=== PATIENT | female | born 1985 | race American Indian/Alaskan Native ===

== ENCOUNTER 2018-07-26 13:17 | Emergency (ER) | payer MEDICAID ==
[2018-07-26 13:27] VITALS: BP 122/75
--- NOTE | 2018-07-26 13:28 | Emergency Department Report ---
Blank Doc - Documentation Documentation: 33 yo female presents to ED cc of n/left sided pelvic pain 7/10 intensity and feels like she is states abn cycle this month. states hx of ovarian cyst ua,upt [facility] eval
[2018-07-26] MEDS ORDERED: ZOFRAN ODT PO ONE (13:51)
[2018-07-26 14:13] LABS: HCG Qualitative,Urine Negative (Negative)
[2018-07-26 14:14] LABS: Bacteria,Urine 4+ /HPF (Negative); Bilirubin,Urine NEG (Negative); Blood,Urine LG (Negative); Color,Urine Yellow (Yellow); Mucus,Urine FEW /HPF; Protein,Urine <15 mg/dL mg/dL (Negative); Urobilinogen,Urine < 2.0 mg/dL (<2.0)
--- NOTE | 2018-07-26 16:05 | Emergency Department Report ---
ED Abdominal Pain HPI - General Chief Complaint: Abdominal Pain Stated Complaint: SYMPTOMS/CRAMPING LEFT SIDE Time Seen by Provider: 07/26/18 13:23 Source: patient Mode of arrival: Ambulatory Limitations: No Limitations - History of Present Illness Initial Comments: Patient is a 33-year-old female who is presenting with left-sided abdominal di scomfort. Patient's had some nausea and one episode of vomiting. She states the cramping sensation and can be worse at night. And present for the past 3-4 days. Patient states it's left upper and lower quadrants. She denies any diarrhea fevers chills, cold or congestion. Patient believes that she may be however she is currently on her menses. Patient believes she may be miscarrying. Severity scale (0 -10): 7 - Related Data Previous Rx's Medication Instructions Recorded Last Taken Type Dicyclomine [Bentyl] 10 mg PO QID #15 capsule 07/26/18 Unknown Rx Docusate Sodium [Colace] 100 mg PO BID #30 capsule 07/26/18 Unknown Rx Simethicone [Gas-X Ultra Strength] 180 mg PO DAILY #7 capsule 07/26/18 Unknown Rx Allergies Allergy/AdvReac Type Severity Reaction Status Date / Time No Known Allergies Allergy Unverified 07/26/18 13:24 ED Review of Systems ROS: Stated complaint: SYMPTOMS/CRAMPING LEFT SIDE Other details as noted in HPI Comment: All other systems reviewed and negative ED Past Medical Hx - Past Medical History Previous Medical History?: Yes Additional medical history: OVARIAN CYST - Surgical History Past Surgical History?: No Additional Surgical History: C SECTION - Social History Smoking Status: Never Smoker Substance Use Type: None - Medications Home Medications: Home Medications Medication Instructions Recorded Confirmed Last Taken Type Dicyclomine [Bentyl] 10 mg PO QID #15 capsule 07/26/18 Unknown Rx Docusate Sodium [Colace] 100 mg PO BID #30 capsule 07/26/18 Unknown Rx Simethicone [Gas-X Ultra Strength] 180 mg PO DAILY #7 capsule 07/26/18 Unknown Rx ED Physical Exam - General Limitations: No Limitations General appearance: alert, in no apparent distress - Head Head exam: Present: atraumatic, normocephalic - Eye Eye exam: Present: normal appearance - ENT ENT exam: Present: mucous membranes moist - Neck Neck exam: Present: normal inspection - Respiratory Respiratory exam: Present: normal lung sounds bilaterally. Absent: respiratory distress, wheezes, rales, rhonchi - Cardiovascular Cardiovascular Exam: Present: regular rate, normal rhythm. Absent: systolic murmur, diastolic murmur, rubs, gallop - GI/Abdominal GI/Abdominal exam: Present: soft, tenderness (left side of the abdomen), normal bowel sounds. Absent: distended, guarding, rebound, rigid, diminished bowel sounds, hyperactive bowel sounds - Extremities Exam Extremities exam: Present: normal inspection - Back Exam Back exam: Present: normal inspection - Neurological Exam Neurological exam: Present: alert, oriented X3 - Psychiatric Psychiatric exam: Present: normal affect, normal mood - Skin Skin exam: Present: warm, dry, intact, normal color. Absent: rash ED Course Vital Signs 07/26/18 13:24 Temperature 97.9 F Pulse Rate 86 Respiratory 16 Rate Blood Pressure 122/75 O2 Sat by Pulse 99 Oximetry ED Medical Decision Making - Lab Data Lab Results 07/26/18 Range/Units 14:00 Urine Color Yellow (Yellow) Urine Turbidity Clear (Clear) Urine pH 6.0 (5.0-7.0) Ur Specific [place] 1.005 (1.003-1.030) Urine Protein <15 mg/dl (Negative) mg/dL Urine Glucose (UA) Neg (Negative) mg/dL Urine Ketones Neg (Negative) mg/dL Urine Blood Lg (Negative) Urine Nitrite Neg (Negative) Ur Reducing Substances Not Reportable Urine Bilirubin Neg (Negative) Urine Ictotest Not Reportable Urine Urobilinogen < 2.0 (<2.0) mg/dL Ur Leukocyte Esterase Tr (Negative) Urine WBC (Auto) 4.0 (0.0-6.0) /HPF Urine RBC (Auto) 57.0 (0.0-6.0) /HPF U Epithel Cells (Auto) 1.0 (0-13.0) /HPF Urine Bacteria (Auto) 4+ (Negative) /HPF Urine Mucus Few /HPF Urine HCG, Qual Negative (Negative) - Radiology Data Patient has a mild productive bowel gas pattern. She does have some prominent loops of bowel in the left upper and lower quadrant consistent with some Retained gas Critical care attestation.: If time is entered above; I have spent that time in minutes in the direct care of this critically ill patient, excluding procedure time. ED Disposition Clinical Impression: Gas pain Disposition: DC-01 TO HOME OR SELFCARE Is pt being admited?: No Does the pt Need Aspirin: No Condition: Stable Instructions: Abdominal Pain (ED) Referrals: FRANKI EASLEY MD [Primary Care Provider] - 3-5 Days Time of Disposition: 16:05
--- NOTE | 2018-07-26 16:30 | XRay Report ---
PROCEDURE: XR ABD SERIES W CXR 1V TECHNIQUE: Frontal view of the chest and frontal views of the abdomen and pelvis in the supine and u pright positions HISTORY: LUQ pain COMPARISONS: None FINDINGS: X-RAY CHEST: There is no evidence of infiltrate, pneumothorax or pleural fluid collection. The cardiomediastinal silhouette is normal in appearance. The bony structures are unremarkable. X-RAY ABDOMEN AND PELVIS: The bowel gas pattern is nonobstructive with air in nondistended loops of small bowel and colon. Stool is demonstrated in portions of the colon and rectum. There is no evidence of pneumoperitoneum nor organomegaly. The bony structures are notable for levocurvature of the lumbar spine. IMPRESSION: 1. No plain film evidence of an acute intrathoracic nor intra-abdominal process. If there is a clinical concern of an acute intra-abdominal process, CT may be helpful for further meliton luation. This document is electronically signed by Jodi Martinez MD., July 26 2018 04:27:50 PM ET
== END 2018-07-26 16:10 | disposition home or self-care (01) ==
LOC: ED 13:17
DX: R14.1 Gas pain (principal)
CPT/HCPCS: 74022; 81001; 81025; 99284; Q0162

== ENCOUNTER 2018-08-30 19:34 | Emergency (ER) | payer MEDICAID ==
[2018-08-30 20:43] VITALS: BP 134/83
== END 2018-08-30 21:00 | disposition left against medical advice (07) ==
LOC: ED 19:34
DX: N89.8 Other specified noninflammatory disorders of vagina (principal); Z53.21 Procedure and treatment not carried out due to patient leaving prior to being seen by health care provider

== ENCOUNTER 2018-11-26 15:21 | Emergency (ER) | payer MEDICAID ==
--- NOTE | 2018-11-26 15:45 | Event Note ---
ED Screening Note ED Screening Note: FOUL ODOR URINE DISCHARGE NOT CONCERNED FOR STI NO BLEEDING LMP 7/6 PMH NONE RX NONE ETOH OCC NO TRAVEL This initial assessment/diagnostic orders/clinical plan/treatment(s) is/are subject to change based on patients health status, clinical progression and re- assessment by fellow clinical providers in the ED. Further treatment and workup at subsequent clinical providers discretion. Patient/guardian urged not to elope from the ED as their condition may be serious if not clinically assessed and man aged. Initial orders include: UA
[2018-11-26 16:03] LABS: HCG Qualitative,Urine Negative (Negative)
[2018-11-26 16:10] LABS: Bacteria,Urine 1+ /HPF (Negative); Bilirubin,Urine NEG (Negative); Blood,Urine NEG (Negative); Color,Urine Yellow (Yellow); Mucus,Urine FEW /HPF; Protein,Urine <15 mg/dL mg/dL (Negative); Urobilinogen,Urine < 2.0 mg/dL (<2.0)
--- NOTE | 2018-11-26 16:17 | Emergency Department Report ---
ED Dysuria HPI - HPI Chief Complaint: Abdominal Pain Stated Complaint: ABD CRAMPS/ODOR IN URINE Time Seen by Provider: 11/26/18 15:45 Duration: 3 Days Location of Discomfort: Suprapubic Severity: Mild Symptoms: Dysuria: Yes, Frequency: No, Suprapubic Pain: No, Flank Pain: No, Fever: No, Hematuria: No, Abdominal Pain: No, Previous UTI's: Yes Other History: HERE W HER USUAL UTI S/S. NO FEVER. NO CVA TENDERNESS. NO CONCERN STI. NO CONCERN PREG. FOUL SMELLING URINE. ED Review of Systems ROS: Stated complaint: ABD CRAMPS/ODOR IN URINE Other details as noted in HPI Comment: All other systems reviewed and negative ED Past Medical Hx - Past Medical History Previous Medical History?: No Additional medical history: OVARIAN CYST - Surgical History Past Surgical History?: Yes Additional Surgical History: C SECTION - Family History Family history: no significant - Social History Smoking Status: Never Smoker Substance Use Type: Alcohol - Medications Home Medications: Home Medications Medication Instructions Recorded Confirmed Last Taken Type Fluconazole [Diflucan TAB] 100 mg PO QDAY #1 tablet 11/26/18 Unknown Rx Sulfamethoxazole/Trimethoprim 1 each PO BID #10 tablet 11/26/18 Unknown Rx [Bactrim DS TAB] Dysuria Exam - Exam General: Vital signs noted. No distress. Alert and acting appropriately. Exam: Yes Moist Mucous Membranes, No CVA Tenderness, No Abdominal Tenderness, No Rigidity or Guarding Labs: Lab Results 11/26/18 Range/Units 15:37 Urine Color Yellow (Yellow) Urine Turbidity Slightly-cloudy (Clear) Urine pH 5.0 (5.0-7.0) Ur Specific [place] 1.016 (1.003-1.030) Urine Protein <15 mg/dl (Negative) mg/dL Urine Glucose (UA) Neg (Negative) mg/dL Urine Ketones Neg (Negative) mg/dL Urine Blood Neg (Negative) Urine Nitrite Pos (Negative) Ur Reducing Substances Not Reportable Urine Bilirubin Neg (Negative) Urine Ictotest Not Reportable Urine Urobilinogen < 2.0 (<2.0) mg/dL Ur Leukocyte Esterase Neg (Negative) Urine WBC (Auto) 9.0 H (0.0-6.0) /HPF Urine RBC (Auto) 1.0 (0.0-6.0) /HPF U Epithel Cells (Auto) 2.0 (0-13.0) /HPF Urine Bacteria (Auto) 1+ (Negative) /HPF Urine Mucus Few /HPF Urine HCG, Qual Negative (Negative) ED Medical Decision Making - Medical Decision Making Labs 11/26/18 15:37 Urine Color Yellow Urine Turbidity Slightly-cloudy Urine pH 5.0 Ur Specific [place] 1.016 Urine Protein <15 mg/dl Urine Glucose (UA) Neg Urine Ketones Neg Urine Blood Neg Urine Nitrite Pos Ur Reducing Substances Not Reportable Urine Bilirubin Neg Urine Ictotest Not Reportable Urine Urobilinogen < 2.0 Ur Leukocyte Esterase Neg Urine WBC (Auto) 9.0 H Urine RBC (Auto) 1.0 U Epithel Cells (Auto) 2.0 Urine Bacteria (Auto) 1+ Urine Mucus Few Urine HCG, Qual Negative VSS- NORMAL, RN TO DOCUMENT AMBULATORY NON TOXIC EXAM WNL UA NOTED UPREG NEG DC HOME WITH DC PLAN OF CARE AND FOLLOW UP WITH PCP - Differential Diagnosis UTI/PREG Critical care attestation.: If time is entered above; I have spent that time in minutes in the direct care of this critically ill patient, excluding procedure time. ED Disposition Clinical Impression: UTI (urinary tract infection) Disposition: DC-01 TO HOME OR SELFCARE Is pt being admited?: No Does the pt Need Aspirin: No Condition: Stable Instructions: Urinary Tract Infection in Women (ED) Additional Instructions: MED ORDERED FOLLOW UP WITH PCP AFTER MEDS TO BE SURE THIS GOES AWAY DRINK A LOT OF WATER Prescriptions: Sulfamethoxazole/Trimethoprim [Bactrim DS TAB] 1 each PO BID #10 tablet Fluconazole [Diflucan TAB] 100 mg PO QDAY #1 tablet Referrals: FRANKI EASLEY MD [Primary Care Provider] - 3-5 Days Time of Disposition: 16:16
== END 2018-11-26 16:20 | disposition home or self-care (01) ==
LOC: ED 15:21
DX: N39.0 Urinary tract infection, site not specified (principal)
CPT/HCPCS: 81001; 81025; 87076; 87086; 87186

== ENCOUNTER 2021-07-18 14:27 | Emergency (ER) | payer SELFPAY ==
[2021-07-18 17:58] LABS: Bilirubin,Urine NEG (Negative); Blood,Urine LG (Negative); Color,Urine Straw (Yellow); Mucus,Urine FEW /HPF; Protein,Urine <15 mg/dL mg/dL (Negative); Urobilinogen,Urine < 2.0 mg/dL (<2.0)
[2021-07-18 18:35] LABS: HCG Qualitative,Urine Negative (Negative)
--- NOTE | 2021-07-18 18:58 | Emergency Department Report ---
ED Female HPI - General Chief complaint: Urogenital-Female Stated complaint: VAGINAL DISCHARGE/ODOR Time Seen by Provider: 07/18/21 17:47 Source: patient Mode of arrival: Ambulatory Limitations: No Limitations - History of Present Illness Initial comments: 36-year-old female presents to the emergency department for evaluation of 3-week history of malodorous vaginal discharge. She states that about 2 weeks ago she was treated for gonorrhea and chlamydia with both discharge and a pill per patient but has not had any improvement in odor or vaginal discharge. She describes discharge as thick white and malodorous. She states that she has also has some frequency but denies dysuria, fever, and abdominal pain. MD Complaint: vaginal discharge -: week(s) (3) Severity scale (0 -10): 0 Are you Now?: No Last Menstrual Period: 07/18/21 EDC: 04/24/22 Associated Symptoms: vaginal discharge. denies: vaginal bleeding, abdominal pain, nausea/vomiting, fever/chills, headaches, loss of appetite, dysuria, hematuria, rash, seizure, shortness of breath, syncope, weakness - Related Data Sexually active: No Previous Rx's Medication Instructions Recorded Last Taken Type Fluconazole [Diflucan TAB] 100 mg PO QDAY #1 tablet 11/26/18 Unknown Rx Sulfamethoxazole/Trimethoprim 1 each PO BID #10 tablet 11/26/18 Unknown Rx [Bactrim DS TAB] cefUROXime [Ceftin] 250 mg PO Q12H #14 tablet 12/12/19 Unknown Rx metroNIDAZOLE [Flagyl] 500 mg PO Q12HR #14 tab 07/18/21 Unknown Rx Allergies Allergy/AdvReac Type Severity Reaction Status Date / Time No Known Allergies Allergy Verified 07/18/21 16:10 ED Review of Systems ROS: Stated complaint: VAGINAL DISCHARGE/ODOR Other details as noted in HPI Comment: All other systems reviewed and negative Constitutional: denies: chills, diaphoresis, fever, malaise, weakness Eyes: denies: eye pain, eye discharge, vision change ENT: denies: ear pain, throat pain, congestion Respiratory: denies: cough, shortness of breath, SOB with exertion, SOB at rest Cardiovascular: denies: chest pain, palpitations Endocrine: no symptoms reported Gastrointestinal: denies: abdominal pain, nausea, vomiting, diarrhea, hematemesis, melena, hematochezia Genitourinary: frequency, discharge. denies: urgency, dysuria, hematuria, abnormal menses Musculoskeletal: denies: back pain Skin: denies: rash, lesions Neurological: denies: headache, weakness, numbness, paresthesias, abnormal gait, vertigo Psychiatric: denies: anxiety Hematological/Lymphatic: denies: easy bleeding, easy bruising ED Past Medical Hx - Past Medical History Previous Medical History?: Yes Additional medical history: OVARIAN CYST - Surgical History Past Surgical History?: Yes Additional Surgical History: C SECTION - Social History Smoking Status: Former Smoker Substance Use Type: Alcohol - Medications Home Medications: Home Medications Medication Instructions Recorded Confirmed Last Taken Type Fluconazole [Diflucan TAB] 100 mg PO QDAY #1 tablet 11/26/18 Unknown Rx Sulfamethoxazole/Trimethoprim 1 each PO BID #10 tablet 11/26/18 Unknown Rx [Bactrim DS TAB] cefUROXime [Ceftin] 250 mg PO Q12H #14 tablet 12/12/19 Unknown Rx metroNIDAZOLE [Flagyl] 500 mg PO Q12HR #14 tab 07/18/21 Unknown Rx ED Physical Exam - General Limitations: No Limitations General appearance: alert, in no apparent distress - Head Head exam: Absent: atraumatic - Eye Eye exam: Present: normal appearance. Absent: conjunctival injection - Neck Neck exam: Present: normal inspection. Absent: tenderness - Respiratory Respiratory exam: Present: normal lung sounds bilaterally. Absent: respiratory distress, wheezes, rales, rhonchi, stridor, chest wall tenderness - Cardiovascular Cardiovascular Exam: Present: regular rate, normal heart sounds - GI/Abdominal GI/Abdominal exam: Present: soft, normal bowel sounds. Absent: distended, tenderness, guarding, rebound, rigid - Extremities Exam Extremities exam: Present: normal inspection - Back Exam Back exam: Present: normal inspection. Absent: tenderness, CVA tenderness (R), CVA tenderness (L) - Neurological Exam Neurological exam: Present: alert, oriented X3 - Psychiatric Psychiatric exam: Present: normal affect, normal mood - Skin Skin exam: Present: warm, dry, intact, normal color ED Course Vital Signs 07/18/21 16:07 Temperature 98.4 F Pulse Rate 96 H Respiratory 14 Rate Blood Pressure 128/76 O2 Sat by Pulse 99 Oximetry ED Medical Decision Making - Medical Decision Making 36-year-old female presents to the emergency department for evaluation of 3-week history of malodorous vaginal discharge. She states that about 2 weeks ago she was treated for gonorrhea and chlamydia with both discharge and a pill per patient but has not had any improvement in odor or vaginal discharge. She describes discharge as thick white and malodorous. She states that she has also has some frequency but denies dysuria, fever, and abdominal pain. UA negative for urinary tract infection, and urine test is negative. Patient states that she does not want a vaginal exam or swabs because she has had bacterial vaginosis in the past and she is pretty confident that this is what she has at this time. Given description of vaginal discharge, patient will be treated with 7-day course of Flagyl 500 mg twice a day. She was advised to take medication as prescribed and if she does not have significant improvement and resolution, she should follow-up with her primary care provider or [facility] [facility] [employer] for further evaluation and management. She was advised to return to the emergency department for worsening symptoms such as abdominal pain or fever. She verbalized understanding of and agreement with plan of care. Critical care attestation.: If time is entered above; I have spent that time in minutes in the direct care of this critically ill patient, excluding procedure time. ED Disposition Clinical Impression: Vaginal discharge Disposition: 01 HOME / SELF CARE / HOMELESS Is pt being admited?: No Does the pt Need Aspirin: No Condition: Stable Instructions: Vaginitis, [id number], Bacterial Vaginosis, [id number] Additional Instructions: Take medications as prescribed. Follow-up with primary care provider if no improvement or worsening symptoms. Prescriptions: metroNIDAZOLE [Flagyl] 500 mg PO Q12HR #14 tab Referrals: TIFFANY ELIZONDO MD [Staff Physician] - 3-5 Days Time of Disposition: 18:57
[2021-07-18 19:15] VITALS: BP 124/72
== END 2021-07-18 19:13 | disposition home or self-care (01) ==
LOC: ED 14:27
DX: N89.8 Other specified noninflammatory disorders of vagina (principal); Z87.891 Personal history of nicotine dependence; Z72.89 Other problems related to lifestyle; Z79.899 Other long term (current) drug therapy
CPT/HCPCS: 81001; 81025; 99283

== ENCOUNTER 2021-10-21 03:31 | Emergency (ER) | payer SELFPAY ==
[2021-10-21 04:05] VITALS: BP 117/66
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
[2021-10-21] MEDS ORDERED: KETOROLAC 30 MG/1 ML INJ IM ONE (10:49)
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
== END 2021-10-21 11:53 | disposition home or self-care (01) ==
LOC: ED 03:31
DX: M54.2 Cervicalgia (principal); M54.9 Dorsalgia, unspecified; M79.671 Pain in right foot; V89.2XXA Person injured in unspecified motor-vehicle accident, traffic, initial encounter; Y93.89 Activity, other specified; Y92.89 Other specified places as the place of occurrence of the external cause; Y99.8 Other external cause status
CPT/HCPCS: 72040; 72100; 96372; 99283; J1885

== ENCOUNTER 2022-01-30 13:38 | Emergency (ER) | payer SELFPAY ==
[2022-01-30 14:17] VITALS: BP 145/87
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
[2022-01-30 17:56] LABS: Bacteria,Urine 2+ /HPF (Negative); Mucus,Urine 3+ /HPF
[2022-01-30 18:00] LABS: Color,Urine Straw (Yellow)
== END 2022-01-30 17:56 | disposition home or self-care (01) ==
LOC: ED 13:38
DX: N39.0 Urinary tract infection, site not specified (principal); Z20.2 Contact with and (suspected) exposure to infections with a predominantly sexual mode of transmission; Z87.891 Personal history of nicotine dependence; Z79.899 Other long term (current) drug therapy; Z98.890 Other specified postprocedural states
CPT/HCPCS: 81001; 87086; 99283